=== PATIENT | male | born 1995 | race Caucasian/White ===

== ENCOUNTER 2017-05-07 10:48 | Emergency (ER) | payer BC ==
[~2017-05-07] VITALS: Ht 177.8 cm; Wt 67.3 kg
[2017-05-07 11:01] VITALS: BP 120/85
--- NOTE | 2017-05-07 11:07 | NUR ---
PATIENT AMBULATED TO ER BED 7.
--- NOTE | 2017-05-07 11:07 | NUR ---
PATIENT PRESENTS TO ED WITH LEFT HAND 0.25IN PUNCTURE WOUND . PT STATES . DENIES N/V/D; SKIN IS PINK/WARM/DRY; AAOX4 WITH EVEN AND STEADY GAIT; LUNGS CLEAR BL; HR EVEN AND REGULAR; PT DENIES ANY FEVER, CP, SOB, OR COUGH AT THIS TIME; PATIENT STATES PAIN OF 4/10 AT THIS TIME; VSS; PATIENT POSITIONED FOR COMFORT; HOB ELEVATED; BEDRAILS UP X2; BED DOWN. ER MD MADE AWARE OF PT STATUS.
--- NOTE | 2017-05-07 11:22 | NUR ---
PATIENT BEING EVALUATED BY DR. LEWIS.
[2017-05-07] MEDS ORDERED: LIDOCAINE 1% 500 MG/50 ML VIAL INJ ONE (11:30)
[2017-05-07 12:04] VITALS: BP 128/88
--- NOTE | 2017-05-07 12:04 | NUR ---
Patient discharged with v/s stable. Written and verbal after care instructions given and explained. Patient verbalized understanding. Ambulatory with steady gait. All questions addressed prior to discharge. Advised to follow up with PMD.
[2017-05-07] MEDS ORDERED: NEOMYCIN/POLYMYXIN/BACITRACIN 0.9 GM/1 PKT TP ONE (12:09)
== END 2017-05-07 12:04 | disposition home or self-care (01) ==
LOC: MED 10:48
DX: S61.412A Laceration without foreign body of left hand, initial encounter (principal); W26.0XXA Contact with knife, initial encounter; Y93.89 Activity, other specified; Y92.89 Other specified places as the place of occurrence of the external cause; Y99.8 Other external cause status
CPT/HCPCS: 12001; 90471; 90715; 99283; J2001